=== PATIENT | female | born 1970 | race Caucasian/White ===

== ENCOUNTER 2018-10-11 15:42 | Emergency (ER) | payer OTHER, BC, SELFPAY ==
[2018-10-11 15:42] VITALS: BP 158/90; PULSE 94; RESP 16; TEMP 36.3; O2SAT 100; BMI 26.6
--- NOTE | 2018-10-11 15:56 | ED.DCSUM_ITS ---
- ER Visit Summary Date of Service: 10/11/18 Chief Complaint: Headache [] History of Present Illness: The patient is a 47 F [presents the emergency department complaint of a headache that started 3 days ago. Patient states the headache came on gradually. Patient states the pain is right-sided and is throb mcihael. Patient gets headaches like this quite often and she tried using Zomig at home without any relief. Patient denies any recent illness or fevers. Denies any falls or head injuries. Patient tells me this headache is typical of her migraines. She has had no significant nausea or vomiting. Does not have significant photophobia.] Physical Examination: HEENT-PERRLA, EOMI. Cranial nerves II through XII grossly intact. TMs clear. Mucous membranes moist. No adenopathy. Cardiovascular-regular rate and rhythm without murmur or ectopy Lungs-clear to auscultation, chest wall stable without crepitus or subcu emphysema Abdomen-normoactive bowel sounds, soft, nontender, no rebound or rigidity, no peritoneal signs. Neuro exam-finger to nose and heel mora testing within normal limits, negative Romberg, negative pronator drift, fundi benign Extremities-intact ?4, normal range of motion, normal pulses, atraumatic [] Test Results: [None indicated] Emergency Department Course and Treatment: [Patient was given a liter normal saline fluid bolus as well as Reglan, Benadryl, and Toradol. On repeat exa mination at 1650 patient's headache down with a 2 out of 10 and she is feeling significantly improved.] Treatment Plan: Patient to follow-up with primary care physician [] Disposition: [Discharged home in stable condition] Impression: [Migrainous cephalgia] This note was generated with [employer] dictation software. It may contain incorrect words, spelling, and punctuation that were not noted in review of the chart prior to signing ED Disposition - Plan for ED Patient: Referrals: Mike Pryor MD [Primary Care Provider] -
[2018-10-11] MEDS: Ketorolac 30 MG/ML Syringe IV (16:27)
[2018-10-11] MEDS: 0.9% Normal Saline 1,000 ML 1000 ML IV (16:27)
[2018-10-11] MEDS: DiphenhydrAMINE 50 MG/ML Syringe 25 MG IV (16:27)
[2018-10-11] MEDS: Metoclopramide 10 MG/2 ML Vial IV (16:27)
--- NOTE | 2018-10-11 16:53 | ED.DEP ---
ED Disposition - Plan for ED Patient: Instructions: ED Headache Migraine Referrals: Mike Pryor MD [Primary Care Provider] - As Needed
[2018-10-11 17:33] VITALS: PULSE 92; RESP 16; O2SAT 97
== END 2018-10-11 17:34 | disposition home or self-care (01) ==
LOC: ED 16:26
PROVIDERS: Emergency Provider Emergency Medicine; Family Provider Family Medicine; PCP Family Medicine
DX: G43.909 Migraine, unspecified, not intractable, without status migrainosus (principal); Z79.899 Other long term (current) drug therapy
CPT/HCPCS: 96361; 96374; 96375; 99283; J7030; A4216

== ENCOUNTER → 2018-10-24 13:19 | Outpatient (CLI) | payer OTHER, BC, SELFPAY ==
[2018-10-11 15:42] VITALS: BMI 26.6
--- NOTE | 2018-10-24 13:21 | BI_ITS ---
MAMMOGRAPHY - BILATERAL SCREENING 3-D CJ SYNTHESIS REASON FOR EXAM: Female, 47 years old. Bilateral Screening 3-D tomosynthesis PERTINENT HISTORY: History of left needle biopsy in 2006. TECHNIQUE: 2-D mammograms and 3-D Cj synthesis of the breast (s) were performed. CAD was performed. COMPARISON: May 31, 2017, August 30, 2015 FINDINGS: The breast composition is almost entirely fat. Scattered benign calcifications are stable. There are stable lymph nodes in both axillae. No dense spiculated masses or suspicious microcalcifications are identified. No architectural distortion is identified. There is no skin thickening or retraction. There has been no significant change since the prior study. BI/SCREEN MAMM (CAD) W/CJ BILAT IMPRESSION: No mammographic signs of malignancy. Routine yearly mammograms recommended. ASSESSMENT CATEGORY: BIRADS Category 2: Benign. A letter regarding these results will be sent to the patient by the facility within 30 days. FOLLOW UP RECOMMENDATION: Yearly follow up mammogram recommended. (A) Approximately 10% of breast cancers are not detected by mammography. A normal mammogram should not delay biopsy of a clinically suspicious abnormality. Electronically Signed: Yo Castillo MD at 17:01 EDT , Service support ,
== END ==
PROVIDERS: Family Provider Family Medicine; PCP Family Medicine; Referring Provider Obstetrics & Gynecology; Visit Provider Obstetrics & Gynecology
DX: Z12.31 Encounter for screening mammogram for malignant neoplasm of breast (principal)
CPT/HCPCS: 77063; 77067

== ENCOUNTER 2019-03-22 15:00 | Emergency (ER) | payer OTHER, BC, SELFPAY ==
[2019-03-22 15:01] VITALS: BP 118/76; PULSE 89; RESP 18; TEMP 36.3; O2SAT 99; BMI 28.1
[2019-03-22] MEDS: Ipratropium/Albuterol Sulfate 3 ML AMPUL.NEB INHALATION (15:34)
[2019-03-22 15:35] VITALS: PULSE 85; RESP 16
[2019-03-22 15:46] VITALS: O2SAT 100
[2019-03-22 15:50] LABS: Absolute Lymphocyte Count 1.95 X10^3/uL (0.83-4.51); Absolute Neutrophil Count 2.7 X10^3/uL (2.0-7.7); Basophil# 0.06 X10^3/uL; Eosinophil# 0.84 X10^3/uL; Eosinophils% 13.5 % (0-5); Hematocrit 37.5 % (37-47); Hemoglobin 12.2 g/dL (12.0-15.0); Lymphocyte # 1.95 X10^3/ul (4.0); Lymphocyte % 31.4 % (19-41); Mean Corp Hgb Conc 32.5 g/dL (32-36); Mean Corpuscular Hgb 30.3 pg (27.0-32.0); Mean Corpuscular Volume 93.1 fL (81-99); Mean Platelet Vol. 8.8 fl (6.2-12.0); Monocyte# 0.57 X10^3/uL; Monocyte% 9.2 % (0-10); NRBC Flagged by Analyzer 0 % (0-5); Neutrophil # 2.66 X10^3/uL (2.7-7.7); Neutrophil % 42.8 % (47-70); Platelet Count 312 K/mm3 (150-450); RBC Distribution Width CV 12.6 % (11.6-14.6); RBC Distribution Width SD 43.3 fl (35.1-43.9); Red Blood Count 4.03 M/mm3 (4.2-5.4); White Blood Count 6.2 K/mm3 (4.4-11.0)
[2019-03-22 16:02] LABS: D-Dimer Quantitative (DVT/PE) 0.98 FEU/ug/m (0.27-0.49)
--- NOTE | 2019-03-22 16:03 | CT_ITS ---
STUDY: CTA CHEST REASON FOR EXAM: Female, 48 years old. Cough and dyspnea for 2 weeks RADIATION DOSAGE (If Supplied By Facility): CTDIvol = ( 13.71 ) mGy, DLP = ( 519.15 ) mGycm TECHNIQUE: The examination was performed with the intravenous administration of 100 IV Isovue 370. Post-processing of the angiographic images was performed, with multiplanar reformation and 3D reconstruction. Individualized dose optimization techniques were used for this CT. COMPARISON: None. FINDINGS: Normal enhancement of the main pulmonary artery and right and left pulmonary arteries. Normal enhancement of the bilateral peripheral pulmonary arteries. There is no demonstrated pulmonary embolism. Normal thoracic aorta and visualized great vessels. There is no demonstrated aortic dissection. Normal heart and pericardium. Normal mediastinum. Normal hilar regions. Normal visualized trachea and bronchi. Dense right upper lobe pneumonia. Normal pleura. Normal chest wall structures. Normal osseous structures. Normal visualized upper abdomen. CT/CTA Chest W/WO Contrast IMPRESSION: No pulmonary embolus. Dense right upper lobe pneumonia. Electronically Signed: Bret Pedersen MD at 17:01 EDT Tel , Service support ,
[2019-03-22 16:04] LABS: Anion Gap 3 (5-15); BUN 12 mg/dL (7-18); BUN/Creat Ratio 16.1 RATIO (10-20); Calcium,Total 8.8 mg/dL (8.5-10.1); Chloride 109 mmol/L (98-107); Creatinine, Serum 0.75 mg/dL (0.55-1.02); EST Glomerular Filtration Rate 89 mL/min (>60); Est Glom Filt Rate - Afr Amer 108 mL/min (>60); Estimated Creatinine Clearance 94.55 ml/min; Glucose 88 mg/dL (74-106); Sodium Level 140 mmol/L (136-145)
--- NOTE | 2019-03-22 16:31 | ED.DCSUM_ITS ---
- ER Visit Summary Date of Service: 03/22/19 Chief Complaint: [Cough and shortness of breath] History of Present Illness: The patient is a 48 F [the emergency department with complaint of a cough that started initially about 3 weeks ago. Patient states that she initially got better for about a week and then the cough worsened again this week. Patient's had fever up to 102 at home. Patient recently started on an inhaler and some cough syrup and 2 days ago started Zithromax. Patient also complains of some pain in her right shoulder and neck. She had body aches that have since mostly resolved. Patient states that she is bringing up some thick mucus at times. She denies recent travel or surgery. No history of blood clots. 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 Cranial nerves II through XII santos sly intact. TMs clear. Mucous membranes moist. No adenopathy. Cardiovascular-regular rate and rhythm without murmur or ectopy Lungs-aeration bilaterally. Patient has some faint expiratory wheezes noted. No accessory muscle use or retractions. No real tenderness on palpation of the chest wall or her back. No rashes noted. Abdomen-normoactive bowel sounds, soft, nontender, no rebound or rigidity, no peritoneal signs. Extremities-intact ?4, normal range of motion, normal pulses, atraumatic] Test Results: CBC with differential was normal. Chemistries unremarkable. D- dimer was elevated [at 0.98. CT of the chest showed no evidence for PE or dissection however she is noted to have a dense right upper lobe pneumonia.] Emergency Department Course and Treatment: [Patient was started on Levaquin 750 mg p.o. I feel patient can be treated as an outpatient as she has no respiratory distress and no fever. Patient has a normal white blood cell count. Clinically patient not toxic appearing.] Treatment Plan: [She was started on Levaquin and advised to follow-up with primary care physician within next 5 to 7 days. Patient advised to return if increasing shortness of breath, or conditions worsen anyway.] Disposition: [Discharged home in stable condition] Impression: [Right upper lobe [id number]] This note was generated with iJigg.comation software. It may contain incorrect words, spelling, and punctuation that were not noted in review of the chart prior to signing ED Disposition - Plan for ED Patient: Referrals: Mike Pryor MD [Primary Care Provider] -
--- NOTE | 2019-03-22 17:11 | ED.DEP ---
ED Disposition - Plan for ED Patient: Instructions: PNEUMONIA (Adult) Prescriptions: levoFLOXacin tablet [Levaquin tablet] 750 mg PO DAILY #7 tab Prescription Printed Referrals: Mike Pryor MD [Primary Care Provider] - 5-7 Days
[2019-03-22] MEDS: levoFLOXacin 750 MG Tablet PO (17:25)
[2019-03-22 17:31] VITALS: BP 108/68; PULSE 96; RESP 18; O2SAT 95
--- NOTE | 2019-03-22 17:31 | ED.RN ---
PT GIVEN WRITTEN AND VERBAL DISCHARGE INSTRUCTIONS AND HOME GONG PRESCRIPTIONS. PT VERBALIZES UNDERSTANDING AND DENIES ANY FURTHER QUESTIONS. PT IV D/C AND COVERED WITH 2X2 GAUZE AND PAPER TAPE. PT DRESSES SELF AND AMBULATES OUT OF DEPT.
== END 2019-03-22 17:33 | disposition home or self-care (01) ==
LOC: ED 15:49
PROVIDERS: Emergency Provider Emergency Medicine; Family Provider Family Medicine; PCP Family Medicine
DX: J18.1 Lobar pneumonia, unspecified organism (principal); R79.89 Other specified abnormal findings of blood chemistry; G43.909 Migraine, unspecified, not intractable, without status migrainosus; E06.3 Autoimmune thyroiditis; Z79.899 Other long term (current) drug therapy
CPT/HCPCS: 71275; 80048; 85025; 85379; 94640; 99284; Q9967

== ENCOUNTER → 2019-05-01 | Outpatient (CLI) | payer OTHER, BC, SELFPAY ==
[2019-05-01 09:19] VITALS: BMI 28.1
[2019-05-01 12:42] LABS: Follicle Stimulating Hormone 8.9 mIU/mL; T4 Free Direct 1.05 ng/dL (0.76-1.46); Thyroid Stim Hormone (TSH) 2.06 uIU/mL (0.358-3.74)
== END | disposition home or self-care (01) ==
LOC: PAVLAB 09:47
PROVIDERS: Family Provider Family Medicine; PCP Family Medicine; Referring Provider Nurse Practitioner Women's Health; Visit Provider Nurse Practitioner Women's Health
DX: N95.1 Menopausal and female climacteric states (principal)
CPT/HCPCS: 36415; 83001; 84439; 84443

== ENCOUNTER → 2019-07-29 09:33 | Outpatient (CLI) | payer OTHER, BC, SELFPAY ==
[2019-07-29 08:18] VITALS: BMI 28.1
[2019-07-29 12:36] LABS: Basophil% 1.3 % (0-1); Eosinophil# 0.63 X10^3/uL; Eosinophils% 7.9 % (0-5); Hematocrit 43.7 % (37-47); Hemoglobin 14.1 g/dL (12.0-15.0); Mean Corp Hgb Conc 32.3 g/dL (32-36); Mean Corpuscular Hgb 29.9 pg (27.0-32.0); Mean Corpuscular Volume 92.8 fL (81-99); Mean Platelet Vol. 9.2 fl (6.2-12.0); Monocyte# 0.86 X10^3/uL; Monocyte% 10.8 % (0-10); NRBC Flagged by Analyzer 0 % (0-5); Neutrophil # 4.02 X10^3/uL (2.7-7.7); Neutrophil % 50.6 % (47-70); Platelet Count 300 K/mm3 (150-450); RBC Distribution Width SD 44.5 fl (35.1-43.9); Red Blood Count 4.71 M/mm3 (4.2-5.4); White Blood Count 7.9 K/mm3 (4.4-11.0)
[2019-07-29 12:44] LABS: ALB/GLOB Ratio 1.1 RATIO (0.9-2.4); AST(SGOT) 14 U/L (15-37); Alanine Aminotransfer ALT/SGPT 20 U/L (13-56); Albumin, Serum 3.8 g/dL (3.2-5.0); Alkaline Phosphatase 90 U/L (45-117); Anion Gap 5 (5-15); BUN 14 mg/dL (7-18); BUN/Creat Ratio 15.7 RATIO (10-20); Calcium,Total 9.1 mg/dL (8.5-10.1); Chloride 104 mmol/L (98-107); Cholesterol 203 mg/dL (200); Creatinine, Serum 0.89 mg/dL (0.55-1.02); EST Glomerular Filtration Rate 72 mL/min (>60); Est Glom Filt Rate - Afr Amer 88 mL/min (>60); Globulin 3.6 g/dL (2.2-4.2); Glucose 93 mg/dL (74-106); High Density Lipoprotein 41 mg/dL; Potassium 4.5 mmol/L (3.5-5.1); Protein, Total 7.4 g/dL (6.4-8.2); Sodium Level 139 mmol/L (136-145); Triglycerides 295 mg/dL; Very Low Density Lipoprotein 59 mg/dL (5-40)
== END ==
PROVIDERS: Family Provider Internal Medicine; PCP Internal Medicine; Visit Provider Internal Medicine
DX: E78.5 Hyperlipidemia, unspecified (principal); D72.1 Eosinophilia
CPT/HCPCS: 36415; 80053; 80061; 85025

== ENCOUNTER 2019-08-26 21:48 | Emergency (ER) | payer OTHER, BC, SELFPAY ==
[2019-07-29 08:18] VITALS: BMI 28.1
[2019-08-26 21:49] VITALS: BP 154/104; PULSE 90; RESP 16; TEMP 36.7; O2SAT 98; BMI 30.4
[2019-08-26] MEDS: Diphth,Pertuss(Acell),Tet Vac 0.5 ML Vial IM (22:22)
[2019-08-26] MEDS: BACITRACIN 15 GM Tube 1 APPLIC TOPICAL (22:25)
--- NOTE | 2019-08-26 23:06 | ED.DCSUM_ITS ---
- ER Visit Summary Date of Service: 08/26/19 Chief Complaint: Laceration to left fifth finger History of Present Illness: The patient is a 48 F who presents with laceration to her left fifth finger that occurred today approximately 8 hours prior to arrival. Patient was cutting W4ts when she accidentally cut her finger. Patient attempted to close the wound with new skin. Patient states that this stop the bleeding initially but every time she bumped her finger it would open the wound. Patient denies any paresthesias or weakness. Patient is unsure of her last tetanus but thinks it was more than 10 years ago. Physical Examination: Vital signs are stable. Patient is afebrile. Patient is in no acute distress. Oral mucosa is pink and moist. Neck is supple. Trachea is midline. Musculoskeletal exam reveals a 1 cm full-thickness linear laceration on the radial aspect of the distal phalanx of the left small finger. There is minimal bleeding. There is minimal gapping of the wound margins. There are no foreign bodies noted. Sensation was intact to light touch in all digits. Capillary refill was less than 2 seconds in all digits. There is full range of motion. Emergency Department Course and Treatment: The wound was cleaned and irrigated with copious amounts normal saline. The wound was anesthetized 1% plain lidocaine locally. Wound was closed with 2 simple interrupted #4-0 nylon sutures under sterile technique. Patient tolerated procedure well. Bacitracin dressing was applied. Patient was instructed to follow-up with her primary care physician in 5 days for wound recheck and suture removal. Patient understood and was agreeable with the plan. All questions were answered. Disposition: Discharge home Impression: Laceration left fifth finger This note was generated with [employer] dictation software. It may contain incorrect words, spelling, and punctuation that were not noted in review of the chart prior to signing ED Disposition - Plan for ED Patient: Disposition: Home or Assisted Living Diagnosis: Laceration of left little finger w/o foreign body w/o damage to nail Instructions: LACERATION, Hand Referrals: Miryam Tompkins MD [Primary Care Provider] - 5 Days for suture removal
== END 2019-08-26 23:22 | disposition home or self-care (01) ==
PROVIDERS: Emergency Provider Emergency Medicine; PCP Internal Medicine; Referring Provider Internal Medicine
DX: S61.217A Laceration without foreign body of left little finger without damage to nail, initial encounter (principal); E06.3 Autoimmune thyroiditis; Z79.899 Other long term (current) drug therapy; W26.0XXA Contact with knife, initial encounter; Y93.G1 Activity, food preparation and clean up; Y92.000 Kitchen of unspecified non-institutional (private) residence as the place of occurrence of the external cause; Y99.8 Other external cause status
CPT/HCPCS: 12001; 90471; 90715; 99283

== ENCOUNTER → 2020-01-27 | Outpatient (CLI) | payer OTHER, BC, SELFPAY ==
[2020-01-27 08:08] VITALS: BMI 30.4
[2020-01-27 13:12] LABS: Thyroid Stim Hormone (TSH) 3.09 uIU/mL (0.358-3.74)
== END | disposition home or self-care (01) ==
LOC: BIMLAB 08:34
PROVIDERS: PCP Internal Medicine; Referring Provider Internal Medicine; Visit Provider Internal Medicine
DX: E03.9 Hypothyroidism, unspecified (principal)
CPT/HCPCS: 36415; 84443

== ENCOUNTER → 2020-01-29 | Outpatient (CLI) | payer OTHER, BC, SELFPAY ==
[2020-01-27 08:08] VITALS: BMI 30.4
--- NOTE | 2020-01-29 13:59 | EKG12_ITS ---
Test Reason : Blood Pressure : / mmHG Vent. Rate : 108 BPM Atrial Rate : 108 BPM P-R Int : 170 ms QRS Dur : 076 ms QT Int : 354 ms P-R-T Axes : 064 022 063 degrees QTc Int : 474 ms Sinus tachycardia Right atrial enlargement Borderline ECG Confirmed by RONNIE LANDRUM, COOKIE ([id number]), editor newspaper VALENTINE VIGIL ([id number]) on 02/02/2020 10:59:27 AM Referred By: Miryam Tompkins Confirmed By:COOKIE TRUJILLO MD
== END | disposition home or self-care (01) ==
LOC: CVS 13:59
PROVIDERS: PCP Internal Medicine; Referring Provider Internal Medicine; Visit Provider Internal Medicine
DX: R00.0 Tachycardia, unspecified (principal)
CPT/HCPCS: 93005

== ENCOUNTER → 2020-02-19 | Outpatient (CLI) | payer OTHER, BC, SELFPAY ==
[2020-01-27 08:08] VITALS: BMI 30.4
--- NOTE | 2020-02-19 14:41 | ECHOD_ITS ---
Reason For Study: PHTN Procedure This was a 2D Doppler, Color Flow transthoracic echocardiogram. Exam performed in department. Left Ventricle Normal LV size. Left ventricular systolic function is normal. The estimated ejection fraction is 60 %. Stage 1 diastolic dysfunction. No regional wall motion abnormalities noted. Right Ventricle Normal RV size. Normal systolic function. Atria Normal left atrium. Normal right atrium. Mitral Valve Normal mitral valve. Trivial eccentric mitral valve insufficiency. Tricuspid Valve Normal tricuspid valve. Unable to estimate RV systolic pressure due to inadequate jet, pulmonary artery pressure probably normal. Aortic Valve Normal aortic valve. Trisinus/trileaflet aortic valve. Pulmonic Valve Normal pulmonic valve. Great Vessels Normal aortic root. The pulmonary artery is normal size. Normal inferior vena cava. Pericardium/Pleural No pericardial effusion. MMode/2D Measurements & Calculations LVIDd: 4.8 cm IVSd: 1.0 cm Ao root diam: 3.6 cm LVIDs: 3.4 cm LVPWd: 1.0 cm RVDd: 3.5 cm FS: 29.9 % LAV(MOD-bp): 53.6 ml LA A4 area: 14.7 cm2 LA dimension(2D): 3.8 cm LAV(MOD-bp) Indexed: 27.1 ml/m2 LAV(MOD-sp2): 54.3 ml LAV(MOD-sp4): 41.8 ml RA A4 area: 13.3 cm2 Doppler Measurements & Calculations MV E max jose alfredo: 74.6 cm/sec Lat Peak E' Jose Alfredo: 11.3 cm/sec Med Peak E' Jose Alfredo: 5.6 cm/sec MV A max jose alfredo: 107.9 cm/sec E/E' lat: 6.6 E/E' med: 13.3 MV E/A: 0.69 Ao V2 max: 118.2 cm/sec LV V1 max: 86.2 cm/sec PA V2 max: 117.0 cm/sec Ao max P.6 mmHg LV V1 max P.0 mmHg Interpretation Summary Normal LV size. Left ventricular systolic function is normal. The estimated ejection fraction is 60 %. Stage 1 diastolic dysfunction. Ordering Physician: Miryam Tompkins Referring Physician: Miryam Tompkins Performed By: Virginia Iraheta, JANEL, RVT
== END | disposition home or self-care (01) ==
LOC: CVS 14:41
PROVIDERS: PCP Internal Medicine; Referring Provider Internal Medicine; Visit Provider Internal Medicine
DX: I51.7 Cardiomegaly (principal); R94.31 Abnormal electrocardiogram [ECG] [EKG]; I27.20 Pulmonary hypertension, unspecified
CPT/HCPCS: 93306

== ENCOUNTER → 2020-02-25 | Outpatient (CLI) | payer OTHER, BC, SELFPAY ==
[2020-02-24 08:45] VITALS: BMI 30.4
[2020-02-29 20:07] LABS: Metanephrine, Ur 54 ug/L (Undefined); Normetanephrines, 24Ur 637 ug/24 hr (131-612); Normetanephrines, Ur 260 ug/L (Undefined)
[2020-02-29 22:20] LABS: Metanephrines, 24Ur 132 ug/24 hr (36-209)
== END | disposition home or self-care (01) ==
LOC: LABSPEC 10:51
PROVIDERS: PCP Internal Medicine; Referring Provider Internal Medicine; Visit Provider Internal Medicine
DX: I10 Essential (primary) hypertension (principal)
CPT/HCPCS: 81050; 83835

== ENCOUNTER → 2020-03-22 | Outpatient (CLI) | payer OTHER, BC, SELFPAY ==
[2020-03-21 17:45] VITALS: BMI 30.4
[2020-03-22 10:35] LABS: Bacteria 0 SEEN /hpf (None Seen); Mucous, Urine 0 SEEN /hpf (<or=2+); Red Blood Cells-Urine 0 SEEN /hpf (0-5); White Blood Cells 0 SEEN /hpf (0-5)
[2020-03-22 11:08] LABS: Color, Urine Yellow (Yellow); Glucose, Dipstick Normal (Normal); Ketone-Dipstick Negative (Negative); Leukocyte Esterase-Dipstick Negative /ul (Negative); Nitrite-Dipstick Negative (Negative); Occult Blood-Urine Negative /ul (Negative); Protein-Dipstick Negative (Negative); Urine Bilirubin Dipstick Negative (Negative); Urine Clarity Sl. Cloudy (Clear); Urine Urobilinogen Normal (Normal)
[2020-03-22 11:24] LABS: Calcium Oxalate Crystals Ur 2+ /hpf (<or=2+); Squamous Epithelial Cells - UA 0-5 SEEN /hpf (5-10)
== END | disposition home or self-care (01) ==
PROVIDERS: PCP Internal Medicine; Referring Provider Physician Assistant Surgical; Visit Provider Physician Assistant Surgical
DX: R35.0 Frequency of micturition (principal)
CPT/HCPCS: 81001; 87086

== ENCOUNTER → 2020-06-17 11:34 | Outpatient (CLI) | payer OTHER, BC, SELFPAY ==
[2020-05-02 09:13] VITALS: BMI 30.4
[2020-05-04 10:37] VITALS: BMI 30.4
--- NOTE | 2020-06-17 11:35 | BI_ITS ---
MAMMOGRAPHY - BILATERAL SCREENING REASON FOR EXAM: Female, 49 years old. Routine annual screening examination. PERTINENT HISTORY: Non-contributory. TECHNIQUE: Digital bilateral breast cj (3D mammographic acquisition) in the CC and MLO projections. 2-D mediolateral oblique (MLO) and craniocaudad (CC) views of both breasts were obtained. CAD: Full Field Digital Mammography with Computer Added Detection was performed. COMPARISON: Comparison is made with prior examination dated 10/24/2018. FINDINGS: Breast Composition: The breasts are heterogeneously dense, which may obscure small masses. There are no dominant masses or suspicious calcifications. Stable small benign appearing bilateral axillary lymph nodes. No other significant abnormalities are identified. There has been no significant change since the prior study. BI/SCREEN MAMM (CAD) W/CJ BILAT IMPRESSION: Stable bilateral screening mammogram. Yearly follow-up mammogram recommended. (A) ASSESSMENT CATEGORY: BIRADS Category 2: Benign. A letter regarding these results will be sent to the patient by the facility within 30 days. Approximately 10% of breast cancers are not detected by mammography. A normal mammogram should not delay biopsy of a clinically suspicious abnormality. [id number] Electronically Signed: Wilbert Leonard, at 13:38 EST , Service support ,
== END ==
LOC: OPBI 11:35
PROVIDERS: PCP Internal Medicine; Referring Provider Nurse Practitioner Women's Health; Visit Provider Nurse Practitioner Women's Health
DX: Z12.31 Encounter for screening mammogram for malignant neoplasm of breast (principal)
CPT/HCPCS: 77063; 77067

== ENCOUNTER → 2021-05-05 11:41 | Outpatient (CLI) | payer BC, SELFPAY ==
[2021-05-05 15:17] LABS: Absolute Lymphocyte Count 1.65 X10^3/uL (0.83-4.51); Absolute Neutrophil Count 4.2 X10^3/uL (2.0-7.7); Basophil# 0.08 X10^3/uL; Basophil% 1.1 % (0-1); Eosinophil# 0.42 X10^3/uL; Eosinophils% 5.8 % (0-5); Hematocrit 43.1 % (37-47); Hemoglobin 14.1 g/dL (12.0-15.0); Lymphocyte # 1.65 X10^3/ul (0.83-4.51); Lymphocyte % 22.7 % (19-41); Mean Corp Hgb Conc 32.7 g/dL (32-36); Mean Corpuscular Hgb 30.4 pg (27.0-32.0); Mean Corpuscular Volume 92.9 fL (81-99); Mean Platelet Vol. 9.4 fl (6.2-12.0); Monocyte# 0.87 X10^3/uL; NRBC Flagged by Analyzer 0 % (0-5); Neutrophil # 4.19 X10^3/uL (2.7-7.7); Neutrophil % 57.6 % (47-70); Platelet Count 293 K/mm3 (150-450); RBC Distribution Width CV 12.4 % (11.6-14.6); RBC Distribution Width SD 42.3 fl (35.1-43.9); Red Blood Count 4.64 M/mm3 (4.2-5.4); White Blood Count 7.3 K/mm3 (4.4-11.0)
[2021-05-05 15:49] LABS: AST(SGOT) 14 U/L (15-37); Alanine Aminotransfer ALT/SGPT 19 U/L (13-56); Albumin, Serum 3.5 g/dL (3.2-5.0); Alkaline Phosphatase 76 U/L (45-117); Anion Gap 6 (5-15); BUN 11 mg/dL (7-18); Calcium,Total 8.4 mg/dL (8.5-10.1); Chloride 108 mmol/L (98-107); Cholesterol 176 mg/dL (200); Creatinine, Serum 0.69 mg/dL (0.55-1.02); EST Glomerular Filtration Rate 97 mL/min (>60); Est Glom Filt Rate - Afr Amer 117 mL/min (>60); Globulin 3.6 g/dL (2.2-4.2); Glucose 93 mg/dL (74-106); High Density Lipoprotein 44 mg/dL; Potassium 3.8 mmol/L (3.5-5.1); Protein, Total 7.1 g/dL (6.4-8.2); Sodium Level 138 mmol/L (136-145); Thyroid Stim Hormone (TSH) 2.71 uIU/mL (0.358-3.74); Triglycerides 212 mg/dL; Very Low Density Lipoprotein 42 mg/dL (5-40)
== END ==
PROVIDERS: PCP Internal Medicine; Referring Provider Physician Assistant; Visit Provider Physician Assistant
DX: D64.9 Anemia, unspecified (principal); E61.1 Iron deficiency; I10 Essential (primary) hypertension; E78.1 Pure hyperglyceridemia; E78.5 Hyperlipidemia, unspecified; E06.3 Autoimmune thyroiditis
CPT/HCPCS: 36415; 80053; 80061; 84443; 85025

== ENCOUNTER → 2021-06-19 13:24 | Outpatient (CLI) | payer BC, SELFPAY ==
--- NOTE | 2021-06-19 13:25 | BI_ITS ---
MAMMOGRAPHY - BILATERAL SCREENING REASON FOR EXAM: Female, 50 years old. Routine annual screening examination. PERTINENT HISTORY: Non-contributory. Remote right excisional breast biopsy. TECHNIQUE: Digital bilateral breast cj (3D mammographic acquisition) in the CC and MLO projections. 2-D mediolateral oblique (MLO) and craniocaudad (CC) views of both breasts were obtained. CAD: Full Field Digital Mammography with Computer Added Detection was performed. COMPARISON: Comparison is made with prior examination dated 06/17/2020 and 10/24/2018. FINDINGS: Breast Composition: The breasts are heterogeneously dense, which may obscure small masses. There are no dominant masses or suspicious calcifications. Stable small benign-appearing bilateral axillary lymph nodes. No other significant abnormalities are identified. There has been no significant change since the prior study. BI/SCRN MAMM (CAD)W/CJ BILAT IMPRESSION: Stable bilateral screening mammogram. Yearly follow-up mammogram recommended. (A) ASSESSMENT CATEGORY: BIRADS Category 2: Benign. A letter regarding these results will be sent to the patient by the facility within 30 days. Approximately 10% of breast cancers are not detected by mammography. A normal mammogram should not delay biopsy of a clinically suspicious abnormality. [id number] Electronically Signed: Wilbert Leonard MD at 14:10 EST , Service support ,
== END ==
PROVIDERS: PCP Internal Medicine; Visit Provider Nurse Practitioner Women's Health
DX: Z12.31 Encounter for screening mammogram for malignant neoplasm of breast (principal)
CPT/HCPCS: 77063; 77067

== ENCOUNTER → 2022-05-25 | Outpatient (CLI) | payer BC, SELFPAY | END | disposition home or self-care (01) | LOC: LABSPEC 09:29 | PROVIDERS: PCP Internal Medicine; Referring Provider Internal Medicine; Visit Provider Internal Medicine | DX: J02.9 Acute pharyngitis, unspecified (principal); Z20.822 Contact with and (suspected) exposure to COVID-19 | CPT/HCPCS: 87635; U0003; U0005 ==

== ENCOUNTER → 2022-07-25 | Outpatient (CLI) | payer BC, SELFPAY | END | disposition home or self-care (01) | LOC: LABSPEC 14:54 | PROVIDERS: PCP Internal Medicine; Referring Provider Physician Assistant; Visit Provider Physician Assistant | DX: R05.9 Cough, unspecified (principal); Z20.822 Contact with and (suspected) exposure to COVID-19 | CPT/HCPCS: 87635; U0003; U0005 ==

== ENCOUNTER 2022-11-05 10:46 | Day surgery (SDC) | payer BC, SELFPAY ==
[2022-11-05] VITALS (7 sets, daily range): BP systolic 108–123; BP diastolic 70–83; PULSE 72–80; RESP 16–18; TEMP 36.2–36.8; O2SAT 96–98; BMI 29.1
--- NOTE | 2022-11-05 | COLBX_PTH ---
PATIENT: NIKITA DALEY LOC: [facility] U#:[id number] AGE/SX: 51/F ROOM: RE11/05/[address]: Dr. Valentin Blake DO : 1970 BED: DIS: 11/05/2022 SPEC #: [id number] RECD: 11/05/22 13:51 STATUS: [facility] #: [id number] RYDER: 11/05/22 00:[address]: Valentin Blake DEPT: SURGICAL PATHOLOGY RECD BY: Benjamin Delarosa ENTERED: 11/06/22 09:47 SP TYPE: COLON BX OTHR DR: Dr. Miryam Tompkins MD Tissues: SPLENIC FLEXURE Procedures: Surgery Specimen Level IV HEADER OPERATION: Colonoscopy ? open access (MAC), biopsy PRE-OP DIAGNOSIS: Screening TISSUE SUBMITTED: Splenic flexure polyp biopsy MICROSCOPIC DIAGNOSIS Colonic polyp at splenic flexure, biopsy: Consistent with inflammatory polyp. AM:monica 11/07/2022 MICROSCOPIC DESCRIPTION Slides are reviewed. GROSS DESCRIPTION Received in fixative is one container labeled with the patient's name and designated splenic flexure polyp biopsy. The specimen consists of one irregular fragment of light levine soft tissue that measures 0.4 x 0.3 x 0.1 cm. The specimen is totally submitted in one cassette. / TIAN:monica 11/06/2022 TC:5 [facility]: [id number]
[2022-11-05] MEDS: Lactated Ringers 1,000 ML 15 ML IV (11:17)
--- NOTE | 2022-11-05 11:25 | HP.PCM_ITS ---
[facility] - General General Date of Admission: 11/05/22 Date of Service: 11/05/22 Chief Complaint: Screening colonoscopy HPI Narrative NIKITA DALEY, is a 51 F who presents today for screening colonoscopy. She denies any abdominal pain. She denies any nausea, vomiting or diarrhea. She has a positive family history of polyps in her family. Her dad had colonic polyps. She has never had a colonoscopy. She is not having any bleeding per re ctum. She has no problems with constipation or diarrhea. Overall she is in very good health. [facility] Medical History (Updated 10/31/22 @ 11:20 by Nai Brizuela) Abnormal Pap smear of cervix Anemia Swapnil's disease High triglycerides History of echocardiogram History of irregular heartbeat Hx of migraines Hypertension Iron deficiency Migraine headache Non-smoker Post-menopausal Thyroid disease Wears glasses Home Medications erenumab-aooe 70 mg/mL subcutaneous auto-injector (Aimovig Autoinjector) 70 mg subcut QMONTH 05/03/21 [History Last Taken Unknown] magnesium 30 mg tablet 250 mg PO DAILY 05/04/22 [History Last Taken Unknown] levothyroxine 75 mcg tablet (Synthroid) 75 mcg PO DAILY #90 tabs 05/15/22 [Rx Last Taken 11/05/22] amlodipine 5 mg tablet 5 mg PO DAILY #90 tabs 07/25/22 [Rx Last Taken 11/05/22] duloxetine 60 mg capsule,delayed release (Cymbalta) 60 mg PO QDAY #90 caps 10/09/22 [Rx Last Taken Unknown] multivitamin 1 tab PO DAILY 10/31/22 [History Last Taken Unknown] omega-3 fatty acids 1,000 mg PO DAILY 10/31/22 [History Last Taken Unknown] Allergy/AdvReac Type Severity Reaction Status Date / Time adhesive tape Allergy Mild rash Verified 11/05/22 11:04 Family History (Updated 08/21/22 @ 08:17 by Evelyn Oscar) Mother Cancer pancreatic, skin Factor V deficiency Sister Anxiety blood clots Factor V Father Colon polyps Surgical History delivery delivered History of colposcopy History of [facility] Social History Smoking Status: Never smoker alcohol intake: never substance use type: does not use caffeine: Yes what type of physical activity do you participate in: walking frequency: daily seatbelt use: always do you feel safe at home: Yes additional social history: [employer] 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[employer] [address] [employer] ROS Review of Systems ROS Unobtainable: other Constitutional Constitutional: Denies fatigue, fever(s), poor appetite, weight gain or weight loss ENT HEENT: Denies mouth lesions Cardiovascular Cardiovascular: Denies abdominal bloating, abdominal edema or abdominal pain Respiratory/Chest Respiratory/Chest: Denies change in mental status, change in phlegm color, chest congestion or chest tightness Gastrointestinal Gastrointestinal: Denies belching, bloating, change in bowel habits, change in stool character, chewing difficulty, coffee ground emesis, constipation, cramping, diarrhea, dyspepsia, dysphagia, early satiety, excessive flatus, fecal incontinence, heartburn, hematemesis, hematochezia, hemorrhoids, loose stools, melena, nausea, odynophagia, rectal bleeding, tenesmus, vomiting or weight changes Genitourinary Genitourinary: Denies abdominal discomfort, burning urination or itching Musculoskeletal Musculoskeletal: Reports as per HPI; Denies muscle weakness or myalgias Integumentary Integumentary: Denies jaundice Neurologic Neurologic: Denies lack of coordination or weakness Psychiatric Psychiatric: Denies confusion, depression, memory loss, mood swings, paranoia or suicidal ideation Endocrine Endocrinology: Denies systems reviewed and no addt'l complaints, except as documented Hematologic/Lymphatic Hematologic/Lymphatic: Denies anemia, easy bleeding, easy bruising or lymphadenopathy Allergic/Immunologic Allergic/Immunologic: Denies systems reviewed and no addt'l complaints, except as documented Vital Signs Vital Signs Vital Signs: 11/05/22 11:05 11/05/22 11:05 Temperature 98.3 F Temperature Source Temporal Pulse Rate 80 Respiratory Rate 16 Respiratory Pattern Normal Blood Pressure 123/70 H Blood Pressure Mean 87 Blood Pressure Source Monitor Blood Pressure Position Semi-Fowlers Blood Pressure Location Left Arm Pulse Ox 97 Oxygen Delivery Method Room Air Weight Weight: 186 lb Body Mass Index (BMI) 29.1 Physical Exam Const alert General Appearance: cooperative Orientation / Consciousness: oriented to person HEENT hearing grossly normal bilaterally Head and Scalp: normal to inspection Face and Sinus: face symmetric Nose: external nose normal Mouth: oral and palatal mucosa normal Eyes conjunctivae normal General Eye: normal appearance of both eyes Neck full ROM General: normal visual inspection Lymph Lymphatic: no lymphadenopathy noted Chest inspection of chest normal and palpation of chest normal Chest: symmetrical chest wall rise Resp normal respiratory effort Effort and Inspection: able to speak in complete sentences Cardio regular rate GI non-distended Percussion: normal to percussion Rectal Exam: deferred Neuro Speech: speech normal Gait (Neuro): normal gait Assessment & Plan Assessment/Plan (1) Encounter for screening for malignant neoplasm of colon: PLAN: She was explained alternatives, risk, benefits including not withstanding bleeding, infection, sepsis, perforation, need for emergent surgery . She will have an ASA of 2.
--- NOTE | 2022-11-05 12:08 | OP.COLON_ITS ---
Patient Name: Karen Hector Procedure Date: 11/05/2022 11:27 AM Date of : 1970 Age: 51 Procedure: Colonoscopy Indications: Screening for colorectal malignant neoplasm Providers: aVlentin Blake DO Medicines: Monitored Anesthesia Care Patient Profile: This is a 51 year old female. Refer to note in patient chart for documentation of history and physical. Last Colonoscopy: none. The patient's first colonoscopy is today. Complications: No immediate complications. Procedure: Pre-Anesthesia Assessment: - Prior to the procedure, a History and Physical was performed, and patient medications and allergies were reviewed. The risks and benefits of the procedure and the sedation options and risks were discussed with the patient. All questions were answered and informed consent was obtained. Patient identification and proposed procedure were verified by the physician in the pre-procedure area. Mental Status Examination: normal. Prophylactic Antibiotics: The patient does not require prophylactic antibiotics. Prior Anticoagulants: The patient has taken no previous anticoagulant or antiplatelet agents. ASA Grade Assessment: II - A patient with mild systemic disease. After reviewing the risks and benefits, the patient was deemed in satisfactory condition to undergo the procedure. The anesthesia plan was to use monitored anesthesia care (MAC). Immediately prior to administration of medications, the patient was re-assessed for adequacy to receive sedatives. The heart rate, respiratory rate, oxygen saturations, blood pressure, adequacy of pulmonary ventilation, and response to care were monitored throughout the procedure. The physical status of the patient was re-assessed after the procedure. After I obtained informed consent, the scope was passed under direct vision. Throughout the procedure, the patient's blood pressure, pulse, and oxygen saturations were monitored continuously. The colonoscope was introduced through the anus and advanced to the cecum, identified by appendiceal orifice and ileocecal valve. The colonoscopy was performed without difficulty. The patient tolerated the procedure well. The quality of the bowel preparation was adequate. Scope In: 11:43:16 AM Scope Withdrawal Time 0 hours 8 minutes 8 seconds Scope Out: 12:03:47 PM Total Procedure Duration Time 0 hours 20 minutes 31 seconds Findings: The perianal and digital rectal examinations were normal. A few small-mouthed diverticula were found in the sigmoid colon. A 5 mm polyp was found in the splenic flexure. The polyp was sessile. The polyp was removed with a cold snare. Resection and retrieval were complete. Verification of patient identification for the specimen was done. Estimated blood loss was minimal. Impression: - Diverticulosis in the sigmoid colon. - One 5 mm polyp at the splenic flexure, removed with a cold snare. Resected and retrieved. Recommendation: - Repeat colonoscopy in 5 years for surveillance. - Continue present medications. Procedure Code(s): --- Professional --- 12499, Colonoscopy, flexible; with removal of tumor(s), polyp(s), or other lesion(s) by snare technique CPT copyright 2017 [employer]. All rights reserved. The codes documented in this report are preliminary and upon hot top liner review may be revised to meet current compliance requirements. Valentin Blake DO 11/05/2022 12:08:00 PM This report has been signed electronically. Number of Addenda: 0 Note Initiated On: 11/05/2022 11:27 AM
--- NOTE | 2022-11-05 12:09 | OP.CCLET_ITS ---
11/05/2022 Miryam Tompkins MD [address] [place] [address] [place] [address] Re : Colonoscopy procedure for Karen Hector Dear Dr. Tompkins This procedure was performed on Saturday, November 05, 2022. My impressions and recommendations are as follows: Impressions : - Diverticulosis in the sigmoid colon. - One 5 mm polyp at the splenic flexure, removed with a cold snare. Resected and retrieved. Recommendations : - Repeat colonoscopy in 5 years for surveillance. - Continue present medications. My findings are described in the full procedure note, which is enclosed. If I can be of further assistance, please feel free to contact me at . Sincerely, Valentin Blake, 11/05/2022 12:08:00 PM This report has been signed electronically.
== END 2022-11-05 12:56 | disposition home or self-care (01) ==
LOC: EN 10:47 → AC 10:48
PROVIDERS: PCP Internal Medicine; Referring Provider Internal Medicine; Visit Provider Internal Medicine Gastroenterology
PROC: 0DJD8ZZ Inspection of Lower Intestinal Tract, Via Natural or Artificial Opening Endoscopic (ICD-10-PCS; CPT 45378; principal; 2022-11-05 11:40)
DX: Z12.11 Encounter for screening for malignant neoplasm of colon (principal); K63.5 Polyp of colon; K57.30 Diverticulosis of large intestine without perforation or abscess without bleeding; I10 Essential (primary) hypertension; E78.5 Hyperlipidemia, unspecified; E03.9 Hypothyroidism, unspecified; Z79.890 Hormone replacement therapy
CPT/HCPCS: 45385; 88305; J7120; J2405

== ENCOUNTER → 2023-02-21 | Outpatient (CLI) | payer BC, SELFPAY ==
[2023-02-21 16:54] LABS: Absolute Lymphocyte Count 2.45 X10^3/uL (0.83-4.51); Absolute Neutrophil Count 5.7 X10^3/uL (2.0-7.7); Basophil# 0.07 X10^3/uL; Basophil% 0.7 % (0-1); Eosinophil# 0.57 X10^3/uL; Eosinophils% 5.9 % (0-5); Hematocrit 42.8 % (37-47); Lymphocyte # 2.45 X10^3/ul (0.83-4.51); Lymphocyte % 25.2 % (19-41); Mean Corp Hgb Conc 32.7 g/dL (32-36); Mean Corpuscular Hgb 30.5 pg (27.0-32.0); Mean Corpuscular Volume 93.2 fL (81-99); Mean Platelet Vol. 9.2 fl (6.2-12.0); Monocyte# 0.91 X10^3/uL; Monocyte% 9.3 % (0-10); NRBC Flagged by Analyzer 0 % (0-5); Neutrophil # 5.69 X10^3/uL (2.7-7.7); Neutrophil % 58.4 % (47-70); Platelet Count 286 K/mm3 (150-450); RBC Distribution Width CV 12.5 % (11.6-14.6); RBC Distribution Width SD 42.9 fl (35.1-43.9); Red Blood Count 4.59 M/mm3 (4.2-5.4); White Blood Count 9.7 K/mm3 (4.4-11.0)
[2023-02-21 17:21] LABS: ALB/GLOB Ratio 1.1 RATIO (0.9-2.4); AST(SGOT) 16 U/L (15-37); Alanine Aminotransfer ALT/SGPT 19 U/L (13-56); Albumin, Serum 3.7 g/dL (3.2-5.0); Alkaline Phosphatase 83 U/L (45-117); Anion Gap 6 (5-15); BUN 17 mg/dL (7-18); BUN/Creat Ratio 26.8 RATIO (10-20); Calcium,Total 8.8 mg/dL (8.5-10.1); Chloride 109 mmol/L (98-107); Cholesterol 182 mg/dL (200); Creatinine, Serum 0.64 mg/dL (0.55-1.02); EST Glomerular Filtration Rate 105 mL/min (>60); Est Glom Filt Rate - Afr Amer 127 mL/min (>60); Globulin 3.4 g/dL (2.2-4.2); Glucose 82 mg/dL (74-106); High Density Lipoprotein 46 mg/dL; Potassium 3.9 mmol/L (3.5-5.1); Protein, Total 7.1 g/dL (6.4-8.2); Sodium Level 139 mmol/L (136-145); Triglycerides 246 mg/dL; Very Low Density Lipoprotein 49 mg/dL (5-40)
== END | disposition home or self-care (01) ==
LOC: BIMLAB 16:17
PROVIDERS: PCP Internal Medicine; Referring Provider Internal Medicine; Visit Provider Internal Medicine
DX: I10 Essential (primary) hypertension (principal); E78.5 Hyperlipidemia, unspecified; E06.3 Autoimmune thyroiditis
CPT/HCPCS: 36415; 80053; 80061; 84443; 85025

== ENCOUNTER → 2023-03-01 | Outpatient (CLI) | payer BC, SELFPAY ==
--- NOTE | 2023-03-01 11:10 | BI_ITS ---
MAMMOGRAPHY - BILATERAL SCREENING 3-D TOMOSYNTHESIS REASON FOR EXAM: Female, 52 years old. Routine screening PERTINENT HISTORY: No significant family history. Previous biopsies TECHNIQUE: 2-D mammograms and 3-D Tomosynthesis of the breast (s) were performed. CAD was performed. COMPARISON: 06/17/2020 FINDINGS: The breast composition is heterogeneously dense that can obscure small breast masses. Scattered benign calcifications are seen. No dense spiculated masses or suspicious microcalcifications are identified. No architectural distortion is identified. There is no skin thickening or retraction. There has been no significant change since the prior study. BI/SCRN MAMM (CAD)W/CJ BILAT IMPRESSION: No mammographic signs of malignancy. Routine yearly mammograms recommended. ASSESSMENT CATEGORY: BIRADS Category 2: Benign. A letter regarding these results will be sent to the patient by the facility within 30 days. FOLLOW UP RECOMMENDATION: Yearly follow up mammogram recommended. (A) Approximately 10% of breast cancers are not detected by mammography. A normal mammogram should not delay biopsy of a clinically suspicious abnormality. Electronically Signed: Alan Cortez MD at 12:49 EDT ,
== END | disposition home or self-care (01) ==
LOC: OPBI 11:09
PROVIDERS: PCP Internal Medicine; Referring Provider Internal Medicine; Visit Provider Internal Medicine
DX: Z12.31 Encounter for screening mammogram for malignant neoplasm of breast (principal)
CPT/HCPCS: 77063; 77067

== ENCOUNTER 2023-09-23 15:25 | Emergency (ER) | payer BC, SELFPAY ==
[2023-09-23 15:25] VITALS: BP 153/83; PULSE 97; RESP 16; TEMP 36.2; O2SAT 100; BMI 29.4
[2023-09-23] MEDS: 0.9% Normal Saline (1000mL) 1,000 ML 999 ML IV (16:02)
[2023-09-23 16:12] LABS: Absolute Lymphocyte Count 1.95 X10^3/uL (0.83-4.51); Absolute Neutrophil Count 5.3 X10^3/uL (2.0-7.7); Basophil# 0.03 X10^3/uL; Basophil% 0.4 % (0-1); Eosinophil# 0.24 X10^3/uL; Eosinophils% 2.8 % (0-5); Hematocrit 41.7 % (37-47); Hemoglobin 13.8 g/dL (12.0-15.0); Lymphocyte # 1.95 X10^3/ul (0.83-4.51); Lymphocyte % 22.9 % (19-41); Mean Corp Hgb Conc 33.1 g/dL (32-36); Mean Corpuscular Hgb 30.9 pg (27.0-32.0); Mean Corpuscular Volume 93.3 fL (81-99); Mean Platelet Vol. 9.4 fl (6.2-12.0); Monocyte# 0.96 X10^3/uL; Monocyte% 11.3 % (0-10); NRBC Flagged by Analyzer 0 % (0-5); Neutrophil # 5.32 X10^3/uL (2.7-7.7); Neutrophil % 62.2 % (47-70); Platelet Count 294 K/mm3 (150-450); RBC Distribution Width CV 12.8 % (11.6-14.6); RBC Distribution Width SD 43.7 fl (35.1-43.9); Red Blood Count 4.47 M/mm3 (4.2-5.4); White Blood Count 8.5 K/mm3 (4.4-11.0)
--- NOTE | 2023-09-23 16:20 | EX.ED.DYSGE1 ---
HPI <Dr. Shen Jean MD - Last Filed: 09/23/23 19:03> History of Present Illness Chief Complaint: Abd Pain <KRYSTIN Elias - Last Filed: 09/23/23 17:51> Narrative Narrative: Patient presenting today due to diarrhea that she has had for the past 2 weeks. She reports that she has multiple bouts daily, usually about 20 minutes after eating. She reports that she was recently on a vacation in [place] and returned home about 2 weeks ago, the day after she returned home is when her symptoms started. No one else in her family has similar symptoms. She reports that she did her best to drink bottled water while she was there. She denies any history of C. difficile or recent antibiotic use. She was that she will have intermittent left upper quadrant abdominal pain and nausea. She denies fevers, chills, blood in the stool, and vomiting. [facility] <Dr. Shen Jean MD - Last Filed: 09/23/23 19:03> [facility] Medical History Abnormal Pap smear of cervix Anemia Swapnil's disease Health care maintenance High triglycerides History of echocardiogram History of irregular heartbeat Hx of migraines Hypertension Iron deficiency Migraine headache Non-smoker Obesity (BMI 30.0-34.9) Overweight (BMI 25.0-29.9) Post-menopausal Thyroid disease Wears glasses Home Medications magnesium 30 mg tablet 250 mg PO DAILY 05/04/22 [History Last Taken Unknown] multivitamin 1 tab PO DAILY 10/31/22 [History Last Taken Unknown] omega-3 fatty acids 1,000 mg PO DAILY 10/31/22 [History Last Taken Unknown] cholecalciferol (vitamin D3) 50 mcg (2,000 unit) capsule 50 mcg PO DAILY 02/21/23 [History Last Taken Unknown] duloxetine 60 mg capsule,delayed release See Rx Instructions .Route .COMPLEX #90 caps 09/03/23 [Rx Last Taken Unknown] levothyroxine 75 mcg tablet (Synthroid) 75 mcg PO DAILY #90 tabs 09/03/23 [Rx Last Taken Unknown] bupropion HCl 200 mg tablet,12 hr sustained-release 200 mg PO BID #60 ea 09/17/23 [Rx Last Taken Unknown] naltrexone 50 mg tablet 25 mg (1/2 x 50 mg) PO BID #30 tabs 09/17/23 [Rx Last Taken Unknown] azithromycin 500 mg tablet See Rx Instructions PO .COMPLEX #3 tabs 09/23/23 [Rx Last Taken Unknown] Allergy/AdvReac Type Severity Reaction Status Date / Time adhesive tape Allergy Mild rash Verified 09/23/23 15:34 Family History Mother Cancer pancreatic, skin Factor V deficiency Sister Anxiety blood clots Factor V Father Colon polyps Surgical History delivery delivered History of colposcopy History of [facility] Social History Smoking Status: Never smoker alcohol intake: never substance use type: does not use caffeine: Yes what type of physical activity do you participate in: walking frequency: daily seatbelt use: always do you feel safe at home: Yes additional social history: [employer]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 Shen Jean MD - Last Filed: 09/23/23 19:03> Physical Exam Const Vital Signs: 09/23/23 15:25 09/23/23 17:00 Temperature 97.2 F L Temperature Source Temporal Pulse Rate 97 81 Respiratory Rate 16 15 Blood Pressure 153/83 H 134/76 H Blood Pressure Mean 106 95 Pulse Ox 100 98 Oxygen Delivery Method Room Air <KRYSTIN Elias - Last Filed: 09/23/23 17:51> Physical Exam Const Vital Signs: 09/23/23 15:25 09/23/23 17:00 Temperature 97.2 F L Temperature Source Temporal Pulse Rate 97 81 Respiratory Rate 16 15 Blood Pressure 153/83 H 134/76 H Blood Pressure Mean 106 95 Pulse Ox 100 98 Oxygen Delivery Method Room Air Positive well nourished, well developed and no apparent distress General Appearance ED: well developed HEENT Reports normocephalic and head/scalp atraumatic Mouth ED: Yes moist mucous membranes normal Eyes PERRL and EOMs intact bilaterally Neck full ROM and supple Chest Wall inspection of chest normal Resp normal respiratory effort and clear to auscultation bilaterally Cardio regular rate and regular rhythm GI soft to palpation, non-tender, non-distended and no masses Palpation: Negative for tender or guarding Back/Spine normal ROM and normal to inspection Extremity normal to inspection and full ROM Neuro oriented x3, CN's II-XII intact bilaterally, moves all extremities, no focal motor deficits and no sensory deficits noted Sensorium / Orientation: awake and alert Psych mental status grossly normal and thought process normal Skin no rashes or lesions noted and no wounds MDM <Dr. Shen Jean MD - Last Filed: 09/23/23 19:03> [facility] MDM Narrative Medical decision making narrative: I have personally performed a face to face assessment of the patient and have reviewed the PACO Note. I performed a substantive portion of the visit including all aspects of the following. My bal findings include: History: Patient presents with 2 weeks of diarrhea. She is eating and drinking fine. But every time she eats she gets some cramping and diarrhea. No blood. This started about a day after she got back from a trip to [place]. Exam: Patient is actually nontoxic. She looks reasonably well-hydrated. Abdomen is slightly increased bowel sounds but is soft and nontender Medical Decision Making: Blood work is done to make sure there are no marked abnormalities, thrombocytopenia or acute kidney failure. As long as these are normal we will get her azithromycin for treatment and have her follow-up. Lab Data Labs: Laboratory Results - last 24 hr 09/23/23 15:35 WBC 8.5 RBC 4.47 Hgb 13.8 Hct 41.7 MCV 93.3 MCH 30.9 MCHC 33.1 RDW Std Deviation 43.7 RDW Coeff of Izaiah 12.8 Plt Count 294 MPV 9.4 Immature Gran % (Auto) 0.400 Neut % (Auto) 62.2 Lymph % (Auto) 22.9 [place] % (Auto) 11.3 H Eos % (Auto) 2.8 Baso % (Auto) 0.4 Absolute Neuts (auto) 5.3 Absolute Lymphs (auto) 1.95 Nucleated RBC % 0 Sodium 139 Potassium 3.4 L Chloride 104 Carbon Dioxide 28.0 Anion Gap 7 BUN 14 Creatinine 0.77 Estim Creat Clear Calc 98.04 Est GFR (MDRD) Af Amer 102 Est GFR (MDRD) Non-Af 84 BUN/Creatinine Ratio 18.2 Glucose 81 Calcium 9.4 Total Bilirubin 0.40 AST 12 L ALT 13 Alkaline Phosphatase 86 Total Protein 7.1 Albumin 3.7 Globulin 3.4 Albumin/Globulin Ratio 1.1 <KRYSTIN Elias - Last Filed: 09/23/23 17:51> MDM MDM Narrative Medical decision making narrative: Patient presenting with 2 weeks of diarrhea. This started a day after she got back from a trip to [place]. She is well-appearing and in no acute distress. Labs overall are unremarkable. She was given IV fluids. She will be treated with azithromycin, stool studies have been obtained. She is to follow-up with her PCP and is comfortable with plan. I have personally performed a face to face assessment of the patient and have reviewed the PACO Note. I performed a substantive portion of the visit including all aspects of the following. My bal findings include: History: Patient presents with 2 weeks of diarrhea. She is eating and drinking fine. But every time she eats she gets some cramping and diarrhea. No blood. This started about a day after she got back from a trip to [place]. Exam: Patient is actually nontoxic. She looks reasonably well-hydrated. Abdomen is slightly increased bowel sounds but is soft and nontender Medical Decision Making: Blood work is done to make sure there are no marked abnormalities, thrombocytopenia or acute kidney failure. As long as these are normal we will get her azithromycin for treatment and have her follow-up. Lab Data Attestation: I reviewed the patient's lab results. Lab results narrative: Potassium 3.4 Labs: Laboratory Results - last 24 hr 09/23/23 15:35 WBC 8.5 RBC 4.47 Hgb 13.8 Hct 41.7 MCV 93.3 MCH 30.9 MCHC 33.1 RDW Std Deviation 43.7 RDW Coeff of Izaiah 12.8 Plt Count 294 MPV 9.4 Immature Gran % (Auto) 0.400 Neut % (Auto) 62.2 Lymph % (Auto) 22.9 [place] % (Auto) 11.3 H Eos % (Auto) 2.8 Baso % (Auto) 0.4 Absolute Neuts (auto) 5.3 Absolute Lymphs (auto) 1.95 Nucleated RBC % 0 Sodium 139 Potassium 3.4 L Chloride 104 Carbon Dioxide 28.0 Anion Gap 7 BUN 14 Creatinine 0.77 Estim Creat Clear Calc 98.04 Est GFR (MDRD) Af Amer 102 Est GFR (MDRD) Non-Af 84 BUN/Creatinine Ratio 18.2 Glucose 81 Calcium 9.4 Total Bilirubin 0.40 AST 12 L ALT 13 Alkaline Phosphatase 86 Total Protein 7.1 Albumin 3.7 Globulin 3.4 Albumin/Globulin Ratio 1.1 Discharge Plan Triage Chief Complaint: Abd Pain ED Midlevel Provider: Linda Davalos ED Provider: Shen Jean Dx/Rx/DC Orders Clinical Impression: Diarrhea, travelers' Instructions: ED Traveler's Diarrhea (Adult) Prescriptions: New azithromycin 500 mg tablet See Rx Instructions .ROUTE .COMPLEX Qty: 3 0RF Rx Instructions: For 500 mg dose pack: take 500 mg once daily for 3 days No Action magnesium 30 mg tablet 250 mg PO DAILY cholecalciferol (vitamin D3) 50 mcg (2,000 unit) capsule 50 mcg PO DAILY duloxetine 60 mg capsule,delayed release(DR/EC) See Rx Instructions .ROUTE .COMPLEX Qty: 90 1RF Dose Instruction: take 1 capsule by mouth once daily Rx Instructions: take 1 capsule by mouth once daily levothyroxine [Synthroid] 75 mcg tablet 75 mcg PO DAILY Qty: 90 1RF multivitamin Tablet 1 tab PO DAILY Fish Oil Capsule 1,000 mg PO DAILY naltrexone 50 mg tablet 25 mg PO BID Qty: 30 1RF bupropion HCl 200 mg tablet sustained-release 12 hr 200 mg PO BID Qty: 60 1RF Primary Care Provider: Miryam Tompkins Referrals: Miryam Tompkins MD [Primary Care Provider] - 3-5 Days if not improving Activity Restrictions/Additional Instructions: Follow-up with your PCP and return for any worsening of your symptoms. Stay well-hydrated. Disposition Disposition: Home, Self Care Discharge Date/Time: 09/23/23 17:01
[2023-09-23 16:36] LABS: ALB/GLOB Ratio 1.1 RATIO (0.9-2.4); AST(SGOT) 12 U/L (15-37); Alanine Aminotransfer ALT/SGPT 13 U/L (13-56); Albumin, Serum 3.7 g/dL (3.2-5.0); Alkaline Phosphatase 86 U/L (45-117); Anion Gap 7 (5-15); BUN 14 mg/dL (7-18); BUN/Creat Ratio 18.2 RATIO (10-20); Calcium,Total 9.4 mg/dL (8.5-10.1); Chloride 104 mmol/L (98-107); Creatinine, Serum 0.77 mg/dL (0.55-1.02); EST Glomerular Filtration Rate 84 mL/min (>60); Est Glom Filt Rate - Afr Amer 102 mL/min (>60); Estimated Creatinine Clearance 98.04 ml/min; Globulin 3.4 g/dL (2.2-4.2); Glucose 81 mg/dL (74-106); Potassium 3.4 mmol/L (3.5-5.1); Protein, Total 7.1 g/dL (6.4-8.2); Sodium Level 139 mmol/L (136-145)
[2023-09-23 17:00] VITALS: BP 134/76; PULSE 81; RESP 15; O2SAT 98
== END 2023-09-23 17:01 | disposition home or self-care (01) ==
PROVIDERS: Physician Assistant; Emergency Provider Emergency Medicine; PCP Internal Medicine; Visit Provider Emergency Medicine
DX: K52.1 Toxic gastroenteritis and colitis (principal)
CPT/HCPCS: 80053; 83630; 85025; 87177; 87209; 87493; 87506; 96360; 99283; J7030; A4216

== ENCOUNTER → 2024-05-19 | Outpatient (CLI) | payer BC, SELFPAY ==
[2024-05-19 12:35] LABS: Absolute Neutrophil Count 4.3 X10^3/uL (2.0-7.7); Basophil# 0.09 X10^3/uL; Basophil% 1.1 % (0-1); Eosinophil# 0.56 X10^3/uL; Eosinophils% 7.1 % (0-5); Hematocrit 45.9 % (37-47); Hemoglobin 14.9 g/dL (12.0-15.0); Lymphocyte % 26.7 % (19-41); Mean Corp Hgb Conc 32.5 g/dL (32-36); Mean Corpuscular Hgb 30.6 pg (27.0-32.0); Mean Corpuscular Volume 94.3 fL (81-99); Mean Platelet Vol. 9.3 fl (6.2-12.0); Monocyte# 0.79 X10^3/uL; NRBC Flagged by Analyzer 0 % (0-5); Neutrophil # 4.28 X10^3/uL (2.7-7.7); Neutrophil % 54.5 % (47-70); Platelet Count 297 K/mm3 (150-450); RBC Distribution Width CV 13.2 % (11.6-14.6); RBC Distribution Width SD 44.7 fl (35.1-43.9); Red Blood Count 4.87 M/mm3 (4.2-5.4); White Blood Count 7.9 K/mm3 (4.4-11.0)
[2024-05-19 12:50] LABS: Vitamin B12 642 pg/mL (211-911); Vitamin D,25 Hydroxy 31.4 ng/mL
[2024-05-19 13:09] LABS: AST(SGOT) 23 U/L (15-37); Alanine Aminotransfer ALT/SGPT 23 U/L (13-56); Albumin, Serum 3.8 g/dL (3.2-5.0); Alkaline Phosphatase 76 U/L (45-117); Anion Gap 8 (5-15); BUN 12 mg/dL (7-18); BUN/Creat Ratio 12.9 RATIO (10-20); Calcium,Total 9.1 mg/dL (8.5-10.1); Chloride 107 mmol/L (98-107); Cholesterol 198 mg/dL (200); Creatinine, Serum 0.93 mg/dL (0.55-1.02); EST Glomerular Filtration Rate 67 mL/min (>60); Est Glom Filt Rate - Afr Amer 81 mL/min (>60); Ferritin 63 ng/mL (8-252); Globulin 3.7 g/dL (2.2-4.2); Glucose 120 mg/dL (74-106); High Density Lipoprotein 50 mg/dL; Iron 114 ug/dL (50-170); Iron Binding Capacity,Total 298 ug/dL (250-450); Potassium 4.1 mmol/L (3.5-5.1); Protein, Total 7.5 g/dL (6.4-8.2); Sodium Level 140 mmol/L (136-145); T4 Free Direct 1.03 ng/dL (0.76-1.46); Triglycerides 155 mg/dL; Very Low Density Lipoprotein 31 mg/dL (5-40)
== END | disposition home or self-care (01) ==
LOC: BIMLAB 08:43
PROVIDERS: PCP Internal Medicine; Referring Provider Nurse Practitioner; Visit Provider Nurse Practitioner
DX: E78.1 Pure hyperglyceridemia (principal); E06.3 Autoimmune thyroiditis; R53.83 Other fatigue; E61.1 Iron deficiency
CPT/HCPCS: 36415; 80053; 80061; 82306; 82607; 82728; 83540; 83550; 84439; 84443; 85025

== ENCOUNTER → 2024-08-19 | Outpatient (CLI) | payer BC, SELFPAY ==
--- NOTE | 2024-08-19 14:29 | BI_ITS ---
MAMMOGRAPHY - BILATERAL SCREENING REASON FOR EXAM: Female, 53 years old. Routine annual screening examination. PERTINENT HISTORY: Non-contributory. Remote right excisional breast biopsy. TECHNIQUE: Digital bilateral breast cj (3D mammographic acquisition) in the CC and MLO projections. 2-D mediolateral oblique (MLO) and craniocaudad (CC) views of both breasts were obtained. CAD: Full Field Digital Mammography with Computer Added Detection was performed. COMPARISON: Comparison is made with prior study dated March 01, 2023 and June 19, 2021. FINDINGS: Breast Composition: The breasts are heterogeneously dense, which may obscure small masses. There are no dominant masses or suspicious calcifications. Stable bilateral fat containing axillary lymph nodes. No other significant abnormalities are identified. There has been no significant change since the prior study. BI/SCRN MAMM (CAD)W/JC BILAT IMPRESSION: Stable bilateral screening mammogram. Yearly follow-up mammogram recommended. (A) ASSESSMENT CATEGORY: BIRADS Category 2: Benign. A letter regarding these results will be sent to the patient by the facility within 30 days. Approximately 10% of breast cancers are not detected by mammography. A normal mammogram should not delay biopsy of a clinically suspicious abnormality. [id number] Electronically Signed: Wilbert Leonard MD at 15:10 EST ,
== END | disposition home or self-care (01) ==
LOC: OPBI 14:28
PROVIDERS: PCP Internal Medicine; Referring Provider Nurse Practitioner; Visit Provider Nurse Practitioner
DX: Z12.31 Encounter for screening mammogram for malignant neoplasm of breast (principal)
CPT/HCPCS: 77063; 77067